=== PATIENT | female | born 1980 | race Caucasian/White ===

== ENCOUNTER 2017-03-28 11:26 | Inpatient (IN) | payer BC ==
[~2017-03-28] VITALS: Ht 160 cm; Wt 68.2 kg
[~2017-03-28 11:26] MED LIST: ACIPHEX; BCP TD; LORTAB 7.5/5001 TAB PO; ZITHROMAX TRI-500 MG PO
[2017-05-16] VITALS (28 sets, daily range): BP systolic 117–144; BP diastolic 58–101; PULSE 71–126; TEMP 97.9–98.1
[2017-05-16] MEDS ORDERED: PRENATAL1 TA7 PO (15:42)
[2017-05-16] MEDS ORDERED: PRILOSEC 20MG20 MG PO (15:42)
[2017-05-16 17:08] LABS: BASO # 0.1 (0.0-0.2); BASO % 0.5 % (0.0-2.0); EOS # 0.2 (0.0-0.7); EOS % 1.7 % (0-4.0); GRAN # 8.5 (1.4-6.5); GRAN % 79.2 % (42.2-75.2); HEMOGLOBIN 12.3 g/dl (12.5-16.0); LYMPH # 1.3 (1.2-3.4); LYMPH % 11.8 % (20.0-51.0); MEAN CELL VOLUME 85 fl (80.0-100.0); MEAN CORPUSCULAR HEMOGLOBIN 29 pg (27.0-31.0); MEAN CORPUSCULAR HGB CONC 34 g/dl (33.0-37.0); MEAN PLATELET VOLUME 12.4 fl (7.4-10.4); MONO # 0.6 (0.1-0.6); PLATELET COUNT 213 K/mm3 (130-400); RED BLOOD COUNT 4.26 M/mm3 (4.10-5.30); REDCELL DISTRIBUTION WIDTH-CV 14.3 % (11.5-14.5); WHITE BLOOD COUNT 10.7 K/mm3 (4.8-10.8)
[2017-05-16 17:14] LABS: HEMATOCRIT 36.4 % (37.0-47.0)
[2017-05-17] VITALS: BP 124/77; PULSE 73
[2017-05-17 00:30] VITALS: BP 123/78; PULSE 78
[2017-05-17 02:10] VITALS: BP 129/71; PULSE 73; TEMP 98.5
[2017-05-17 06:00] VITALS: BP 134/80; PULSE 67; TEMP 97.9
[2017-05-17 08:30] VITALS: BP 124/85; PULSE 77; TEMP 98.3
[2017-05-17 20:10] VITALS: BP 107/82; PULSE 80; TEMP 97.8
[2017-05-18 07:53] VITALS: BP 109/80; PULSE 78; TEMP 98.1
[2017-05-18] MEDS ORDERED: IBU800 M1 PO (09:56)
[2017-05-18] MEDS ORDERED: PERCOCET 325 MG1 TA2 PO (09:56)
== END 2017-05-18 11:30 | disposition home or self-care (01) | DRG 775 ==
LOC: OB 05-16 15:55 → LDR 05-16 15:55 → OB 05-17 01:00 → LDRO 05-25 11:26 → EDSTATUS 05-25 15:59
PROVIDERS: Obstetrics & Gynecology
PROC: 10E0XZZ Delivery of Products of Conception, External Approach (ICD-10-PCS; principal; 2017-05-16)
DX: O69.81X0 Labor and delivery complicated by cord around neck, without compression, not applicable or unspecified (principal); Z3A.38 38 weeks gestation of pregnancy; Z37.0 Single live birth
CPT/HCPCS: J2590; J7120